=== PATIENT | male | born 1960 | race Caucasian/White ===

== ENCOUNTER 2018-09-04 10:40 | Day surgery (SDC) | payer MEDICARE, MEDICAID ==
[~2018-09-04] VITALS: Ht 180.3 cm; Wt 87.2 kg
[~2018-09-04 10:40] MED LIST: ASPI-496 PO; HYDR2TAB29 PO; None per pt; PROM25SU34 PO
[2018-09-04] MEDS ORDERED: LACTATED RINGERS 1,000 ML IV SCH (11:11)
[2018-09-04] MEDS ORDERED: PLEASE ENTER HEIGHT AND WEIGHT MC SCH (11:30)
[2018-09-04 11:34] VITALS: BP 126/67
[2018-09-04] MEDS ORDERED: PROPOFOL 10 MG/ML, 20ML ONE (13:10)
[2018-09-04] MEDS ORDERED: HALOPERIDOL 5 MG/ML ONE ×2 (13:46→13:56)
== END 2018-09-04 14:55 | disposition home or self-care (01) ==
LOC: OUT 10:40
PROVIDERS: ATTEND Internal Medicine Gastroenterology
DX: K21.9 Gastro-esophageal reflux disease without esophagitis (principal); K29.60 Other gastritis without bleeding; K22.70 Barrett's esophagus without dysplasia; K44.9 Diaphragmatic hernia without obstruction or gangrene; Z88.0 Allergy status to penicillin
CPT/HCPCS: 43239; 88305; J2704; J7120

== ENCOUNTER 2018-09-05 16:43 | Emergency (ER) | payer MEDICARE, MEDICAID ==
[~2018-09-05] VITALS: Ht 182.9 cm; Wt 85.7 kg
--- NOTE | 2018-09-05 17:25 | NUR ---
PT TO ROOM FROM LOBBY AT THIS TIME.
--- NOTE | 2018-09-05 17:31 | NUR ---
PT STATED THAT HIS THROAT IS STIFF AND HIS TONGUE IS HARD SINCE 3 AM. PT HAD AN ENDOSCOPY YESTERDAY FOR FAMILY HX OF STOMACH CA. PT IS ALERT, ORIENTED, WITH NAD. PIÑA AT BEDSIDE.
[2018-09-05] MEDS ORDERED: MAALOX/HYOSCYAMINE/LIDOCAINE 45 ML BTL ONE (17:50)
--- NOTE | 2018-09-05 17:56 | NUR ---
PT MEDICATED PER ORDER.
[2018-09-05] MEDS ORDERED: MAALOX/HYOSCYAMINE/LIDOCAINE 45 ML BTL PO ONE (18:00)
[2018-09-05] MEDS ORDERED: LORazepam 2 MG/ML, 1ML IVPush ONE (19:00)
[2018-09-05] MEDS ORDERED: LORazepam 2 MG/ML, 1ML ONE (19:00)
--- NOTE | 2018-09-05 19:00 | NUR ---
REPORT GIVEN TO MIO PRADHAN.
--- NOTE | 2018-09-05 19:08 | NUR ---
REPORT RECEIVEDF GHAZALA SHETTY RN. PT SITTING UP ON GURNEY, SIDERAILS UP X2, CALL LIGHT WITHIN REACH, MEDICATED PER OCT. AWAITING CT
[2018-09-05 19:10] VITALS: BP 144/79
[2018-09-05 19:15] LABS: ALBUMIN 3.9 g/dL (3.4-5.0); ANION GAP 7 mmol/L (5-15); CALCIUM 9.5 mg/dL (8.5-10.1); CHLORIDE 111 mmol/L (98-107); CREATININE 1.26 mg/dL (0.7-1.3)
[2018-09-05 19:22] LABS: BASOPHILS # (AUTO) 0.01 x10^3/uL (0-0.1); BASOPHILS % (AUTO) 0 % (0-1); EOSINOPHILS # (AUTO) 0.14 x10^3/uL (0-0.4); EOSINOPHILS % (AUTO) 1 % (1-7); LYMPHOCYTES # (AUTO) 2.98 x10^3/uL (1-3.4); LYMPHOCYTES % (AUTO) 31 % (22-44); MD NO; MEAN CORPUSCULAR HEMOGLOBIN 31.8 pg (27.5-34.5); MEAN CORPUSCULAR VOLUME 93.5 fL (81-97); MEAN PLATELET VOLUME 8.6 fL (7.4-10.4); MONOCYTES # (AUTO) 0.12 x10^3/uL (0.2-0.8); MONOCYTES % (AUTO) 1 % (2-9); NEUTROPHILS # (AUTO) 6.53 x10^3/uL (1.8-6.8); NEUTROPHILS % (AUTO) 67 % (42-75); PLATELET COUNT 290 x10^3/uL (130-400); RED BLOOD COUNT 4.75 x10^6/uL (4.38-5.82); RED CELL DISTRIBUTION WIDTH 13.5 % (9.4-14.8)
--- NOTE | 2018-09-05 19:28 | NUR ---
Panchito koch in [facility] - 09/05/18 at 1930 by DARCI PT TO ULTRASOUND
--- NOTE | 2018-09-05 19:30 | NUR ---
PT TO CT
[2018-09-05] MEDS ORDERED: OMNIPAQUE 350 MG/ML, 100ML BOTTLE ONE (19:47)
--- NOTE | 2018-09-05 20:28 | NUR ---
PT AWAITING D/C PAPERS AT THIS TIME, REFUSED REPEAT VS
== END 2018-09-05 20:34 | disposition home or self-care (01) ==
LOC: ED 20:28
DX: M62.838 Other muscle spasm (principal); I50.9 Heart failure, unspecified; Z90.49 Acquired absence of other specified parts of digestive tract
CPT/HCPCS: 36415; 70491; 71045; 80048; 82040; 85025; 96374; 99284; J2060; Q9967